=== PATIENT | female | born 1970 | race African-American/Black ===

== ENCOUNTER 2018-06-25 22:30 | Emergency (ER) | payer OTHER ==
[2018-06-25 22:51] VITALS: BP 154/95; PULSE 82; TEMP 98.3; BMI 32.9
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
[2018-06-25] MEDS ORDERED: IBUPROFEN 400 MG TABLET (FP) PO ONE ×2 (23:40→23:45)
[2018-06-26] MEDS ORDERED: CYCLOBENZAPRINE HCL 5 MG TABLET PO STA (02:10)
[2018-06-26] MEDS ORDERED: CYCLOBENZAPRINE HCL 10 MG TABLET (FP) ONE (02:34)
== END 2018-06-26 02:36 | disposition home or self-care (01) ==
LOC: JER 22:30
DX: S93.401A Sprain of unspecified ligament of right ankle, initial encounter (principal); V43.52XA Car driver injured in collision with other type car in traffic accident, initial encounter; Y93.89 Activity, other specified; Y92.410 Unspecified street and highway as the place of occurrence of the external cause; D64.9 Anemia, unspecified; E11.9 Type 2 diabetes mellitus without complications; I10 Essential (primary) hypertension; E78.00 Pure hypercholesterolemia, unspecified; Z91.013 Allergy to seafood; Z79.82 Long term (current) use of aspirin; Z79.84 Long term (current) use of oral hypoglycemic drugs
CPT/HCPCS: 72100-TC-FY; 73610-TC-RT-FY; 84703; 99283-25

== ENCOUNTER 2025-07-03 16:18 | Inpatient (IN) | payer OTHER ==
[2025-07-03] MEDS ORDERED: ACETAMINOPHEN INJECTION 100 ML ONE ×3 (16:41→23:54)
[2025-07-03] MEDS ORDERED: PIPERACILLIN/TAZOB 3.375 GM 3.375 GM/50 ML BAG IVPB ONE ×2 (16:47→23:50)
[2025-07-03] MEDS: ACETAMINOPHEN 1000 MG/100 ML BAG IVPB ONE (16:49)
[2025-07-03] MEDS: SODIUM CHLORIDE 0.9% 500 ML INFUS.BAG IV ONE (16:49)
[2025-07-03] MEDS: PIPERACILLIN/TAZOB 3.375 GM 3.375 GM in DEXTROSE 5%-WATER - 50 ML IVPB ONE (16:49)
[2025-07-03 16:58] LABS: RDW 13.2 % (12.3-16.6)
[2025-07-03 17:00] LABS: MCHC 31.8 g/dl (32.2-35.5); MEAN CELL VOLUME 86.2 fl (79.4-94.8); MEAN PLT VOLUME 11.3 fl (9.4-12.3)
[2025-07-03 17:04] LABS: BG HCT 43.0 % (32.4-45.2); VENOUS BASE EXCESS -1.9 mmol/L (-2-2); VENOUS O2 SATURATION 25.0 % (70-80); VENOUS PCO2 36.8 mmHg (38-52); VENOUS PH 7.402 (7.310-7.410)
[2025-07-03] MEDS ORDERED: VANCOMYCIN 1 GM PREMIX (F) 1 GM/200 ML BAG ONE (17:07)
[2025-07-03 17:17] LABS: GLUCOSE,RANDOM 388.0 mg/dL (74-106)
[2025-07-03 17:18] LABS: TOT PROT 6.6 g/dl (6.4-8.2)
[2025-07-03 17:19] LABS: CO2 21.0 mmol/L (21-32)
[2025-07-03 17:20] LABS: ALK PHOS 80.0 U/L (40-150)
[2025-07-03 17:23] LABS: CREATININE 1.19 mg/dL (0.55-1.3); SGOT/AST 28.0 U/L (5-34); SGPT/ALT 20.0 U/L (0-55)
[2025-07-03] MEDS: VANCOMYCIN 1,000 MG in DEXTROSE 5%-WATER - 250 ML IVPB ONE (17:31)
[2025-07-03 17:43] LABS: HCV DIAGNOSTIC IN-HOUSE W/RFLX NON-REACTIVE (NONREACTIVE)
[2025-07-03 17:44] LABS: HIV INTERPRETATION NEGATIVE (NEGATIVE)
[2025-07-03 18:20] LABS: ERYTHROCYTE SEDIMENTATION RATE 95 mm/hr (0-30)
[2025-07-03 18:26] LABS: EPI CELLS 25 /uL (0-25.1); HYALINE CASTS 1 /uL (0-3.1); URINE APPEARANCE CLEAR; URINE BACTERIA 270 /uL (0-1359); URINE BILIRUBIN NEGATIVE (NEGATIVE); URINE COLOR YELLOW; URINE GLUCOSE (UA) 1+ (NEGATIVE); URINE KETONE 3+ (NEGATIVE); URINE LEUK ESTERASE NEGATIVE (NEGATIVE); URINE NITRITE NEGATIVE (NEGATIVE); URINE PROTEIN 2+ (NEGATIVE); URINE RBC 3 /uL (0-23.9); URINE UROBILINOGEN 1.0 mg/dL (0.2-1.0); URINE WBC 12 /uL (0-25.8)
[2025-07-03 18:35] LABS: COCAINE, UR NEGATIVE (NEGATIVE); INR 1.25 (0.83-1.09); PHENCYCLIDINE,URINE NEGATIVE (NEGATIVE); PROTHROMBIN TIME (PATIENT) 13.6 SEC (9.7-13.0)
[2025-07-03 18:36] LABS: METHADONE, UR NEGATIVE (NEGATIVE); OPIATES, URI NEGATIVE (NEGATIVE); URINE AMPHETAMINES NEGATIVE (NEGATIVE); URINE BARBITURATES NEGATIVE (NEGATIVE); URINE BENZODIAZEPINES NEGATIVE (NEGATIVE)
[2025-07-03 18:43] LABS: ACTIVATED PTT 27.4 SECONDS (25.2-36.5)
[2025-07-03] MEDS ORDERED: KETOROLAC TROMETHAMINE 15 MG/ML VIAL ONE (20:49)
[2025-07-03] MEDS: KETOROLAC TROMETHAMINE 15 MG/ML VIAL IVPUSH ONE (21:01)
[2025-07-04] MEDS: PIPERACILLIN/TAZOB 3.375 GM 3.375 GM in DEXTROSE 5%-WATER - 50 ML IVPB SCH (00:04)
[2025-07-04] MEDS: ACETAMINOPHEN 1000 MG/100 ML BAG IVPB PRN (00:04)
[2025-07-04] MEDS ORDERED: ACETAMINOPHEN INJECTION 100 ML ONE ×2 (05:12→12:23)
[2025-07-04] MEDS ORDERED: ALBUTEROL SO4 2.5/IPRATROPIUM 0.5 INH SOL 3 ML VIAL.NEB. NEB ONE ×2 (05:12→11:54)
[2025-07-04] MEDS: ALBUTEROL SO4 2.5/IPRATROPIUM 0.5 INH SOL 3 ML VIAL.NEB. NEB ONE (05:23)
[2025-07-04] MEDS: VANCOMYCIN/WATER 1250 MG 1,250 MG/250 ML BAG IVPB SCH (05:24)
[2025-07-04] MEDS ORDERED: VANCOMYCIN/WATER 1250 MG 1,250 MG/250 ML BAG IVPB ONE (05:24)
[2025-07-04 07:08] LABS: MCHC 32.1 g/dl (32.2-35.5); MEAN CELL VOLUME 84.6 fl (79.4-94.8); MEAN PLT VOLUME 12.2 fl (9.4-12.3); RDW 13.2 % (12.3-16.6)
[2025-07-04 07:17] LABS: GLUCOSE,RANDOM 534 mg/dL (74-106)
[2025-07-04 07:18] LABS: TOT PROT 5.4 g/dl (6.4-8.2)
[2025-07-04 07:23] LABS: CREATININE 1.06 mg/dL (0.55-1.3); SGOT/AST 33 U/L (5-34); SGPT/ALT 20 U/L (0-55)
[2025-07-04 07:31] LABS: ALK PHOS 69 U/L (40-150); CO2 19 mmol/L (21-32)
[2025-07-04] MEDS ORDERED: KETOROLAC TROMETHAMINE 15 MG/ML VIAL ONE ×2 (07:35→13:42)
[2025-07-04] MEDS: KETOROLAC TROMETHAMINE 15 MG/ML VIAL IVPUSH PRN (07:39)
[2025-07-04 08:47] LABS: EPI CELLS 17 /uL (0-25.1); HYALINE CASTS 0 /uL (0-3.1); URINE APPEARANCE CLOUDY; URINE BACTERIA 301 /uL (0-1359); URINE BILIRUBIN NEGATIVE (NEGATIVE); URINE COLOR YELLOW; URINE GLUCOSE (UA) 3+ (NEGATIVE); URINE KETONE 2+ (NEGATIVE); URINE LEUK ESTERASE NEGATIVE (NEGATIVE); URINE NITRITE NEGATIVE (NEGATIVE); URINE PROTEIN 1+ (NEGATIVE); URINE RBC 4 /uL (0-23.9); URINE UROBILINOGEN 0.2 mg/dL (0.2-1.0); URINE WBC 20 /uL (0-25.8)
[2025-07-04] MEDS ORDERED: ENOXAPARIN NA (PORCINE) 40 MG/0.4 ML DISP.SYRIN SQ ONE (09:47)
[2025-07-04] MEDS ORDERED: PIPERACILLIN/TAZOB 3.375 GM 3.375 GM/50 ML BAG IVPB ONE ×2 (09:47→15:36)
[2025-07-04] MEDS: ENOXAPARIN NA (PORCINE) 40 MG/0.4 ML DISP.SYRIN SQ SCH (09:55)
[2025-07-04 12:03] LABS: YEAST NOT PRESENT (NEGATIVE)
[2025-07-04] MEDS ORDERED: INSULIN ASPART SLIDING SCALE (NOVOLOG) 1 VIAL SQ ONE (15:24)
[2025-07-04] MEDS: INSULIN (NOVOLOG) ASPART 100 UNITS/ML 10ML VIAL SQ ONE (15:32)
[2025-07-04] MEDS: INSULIN ASPART SLIDING SCALE (NOVOLOG) 1 VIAL SQ SCH ×2 (15:34→21:02)
[2025-07-04] MEDS ORDERED: ASPIRIN 81 MG CHEWABLE TABLETS ONE (15:36)
[2025-07-04] MEDS: ASPIRIN 81 MG CHEWABLE TABLETS PO SCH (15:43)
[2025-07-04] MEDS: INSULIN GLARGINE (LANTUS) 100 UNITS/ML UNITS SQ SCH (21:02)
[2025-07-04] MEDS: LIDOCAINE 5% TOPICAL PATCH TP SCH (21:04)
[2025-07-04] MEDS: guaiFENesin/D-METHORPHAN TAB.ER.12H PO SCH (21:44)
[2025-07-05 09:20] LABS: MCHC 32.5 g/dl (32.2-35.5); MEAN CELL VOLUME 84.4 fl (79.4-94.8); MEAN PLT VOLUME 13.2 fl (9.4-12.3); RDW 13.2 % (12.3-16.6)
[2025-07-05 09:55] LABS: GLUCOSE,RANDOM 153.0 mg/dL (74-106)
[2025-07-05 09:56] LABS: TOT PROT 6.3 g/dl (6.4-8.2)
[2025-07-05 09:57] LABS: CO2 19.0 mmol/L (21-32)
[2025-07-05 09:58] LABS: ALK PHOS 78.0 U/L (40-150)
[2025-07-05 10:01] LABS: CREATININE 1.11 mg/dL (0.55-1.3); SGOT/AST 72.0 U/L (5-34); SGPT/ALT 48.0 U/L (0-55)
[2025-07-05] MEDS: SODIUM CHLORIDE 1,000 ML IV SCH (10:39)
[2025-07-05 10:46] LABS: LDL CHOLESTEROL (ONLY SJRH) 70 mg/dL (5-100)
[2025-07-05] MEDS: LIDOCAINE PATCH REMOVAL MC SCH (11:56)
[2025-07-05] MEDS: ACETAMINOPHEN 325 MG TABLET (FP) PO PRN (13:31)
[2025-07-05] MEDS: PANTOPRAZOLE SODIUM 40 MG VIAL IVPUSH SCH (13:32)
[2025-07-05] MEDS: LACTATED RINGERS SOLUTION 1,000 ML/1,000 ML INFUS.BAG IV SCH (13:47)
[2025-07-05] MEDS ORDERED: ACETAMINOPHEN 325 MG TABLET (FP) PO PRN (16:31)
[2025-07-05 17:10] LABS: LDL CHOLESTEROL (ONLY SJRH) 75.0 mg/dL (5-100)
[2025-07-05 17:15] LABS: N-TERMINAL BNP 463.5 pg/mL (0-299.9)
[2025-07-05] MEDS ORDERED: PIPERACILLIN/TAZOB 4.5 GM 4.5 GM in DEXTROSE 5%-WATER 100 ML IVPB SCH (18:00)
[2025-07-05] MEDS: PIPERACILLIN/TAZOB 3.375 GM 3.375 GM in DEXTROSE 5%-WATER - 50 ML IVPB SCH (18:49)
[2025-07-05] MEDS: IBUPROFEN 800 MG/8 ML IJ IVPB ONE (21:59)
[2025-07-06] MEDS ORDERED: PIPERACILLIN/TAZOB 3.375 GM 3.375 GM in DEXTROSE 5%-WATER - 50 ML IVPB SCH (03:00)
[2025-07-06] MEDS ORDERED: VANCOMYCIN/WATER 1250 MG 1,250 MG/250 ML BAG IVPB SCH (06:00)
[2025-07-06] MEDS ORDERED: AZITHROMYCIN IVPB 500 MG/250 ML BAG IVPB SCH (11:00)
[2025-07-06 11:30] LABS: MCHC 32.5 g/dl (32.2-35.5); MEAN CELL VOLUME 82.9 fl (79.4-94.8); MEAN PLT VOLUME 13.0 fl (9.4-12.3); RDW 13.8 % (12.3-16.6)
[2025-07-06 12:09] LABS: GLUCOSE,RANDOM 200.0 mg/dL (74-106)
[2025-07-06 12:10] LABS: ALK PHOS 71.0 U/L (40-150); CO2 22.0 mmol/L (21-32); CREATININE 1.13 mg/dL (0.55-1.3); SGOT/AST 88.0 U/L (5-34); SGPT/ALT 53.0 U/L (0-55); TOT PROT 5.5 g/dl (6.4-8.2)
[2025-07-06] MEDS: SODIUM CHLORIDE 1,000 ML IV SCH (18:39)
[2025-07-07 07:13] LABS: GLUCOSE,RANDOM 113.0 mg/dL (74-106); TOT PROT 5.0 g/dl (6.4-8.2)
[2025-07-07 07:16] LABS: ALK PHOS 72.0 U/L (40-150)
[2025-07-07 07:18] LABS: SGOT/AST 119.0 U/L (5-34); SGPT/ALT 60.0 U/L (0-55)
[2025-07-07 07:19] LABS: CREATININE 1.08 mg/dL (0.55-1.3)
[2025-07-07 07:25] LABS: CO2 21.0 mmol/L (21-32)
[2025-07-07 07:37] LABS: IRON SERUM < 10 ug/dL (50-175)
[2025-07-07] MEDS: POTASSIUM CHLORIDE ORAL LIQUID 20 MEQ/15 ML PO ONE (09:14)
[2025-07-07] MEDS: KCL 10 MEQ IVPB 10 MEQ/100 ML INFUS.BAG IVPB SCH (10:27)
[2025-07-07] MEDS: ALBUTEROL SO4 2.5/IPRATROPIUM 0.5 INH SOL 3 ML VIAL.NEB. NEB SCH (11:54)
[2025-07-07] MEDS: MAGNESIUM 1GM/D5W 100ML - 100 ML IVPB IVPB ONE (13:53)
[2025-07-07] MEDS: METHOCARBAMOL 500 MG TABLET PO SCH (16:00)
[2025-07-07] MEDS: LIDOCAINE 4% PATCH TP SCH ×3 (16:25→21:28)
[2025-07-07] MEDS: ACETAMINOPHEN 1000 MG/100 ML BAG IVPB PRN (20:33)
[2025-07-07] MEDS: ATORVASTATIN CA 10 MG TABLET (FP) PO SCH (21:28)
[2025-07-07] MEDS ORDERED: LIDOCAINE PATCH REMOVAL MC SCH (22:00)
[2025-07-08] MEDS: ALBUTEROL SO4 2.5/IPRATROPIUM 0.5 INH SOL 3 ML VIAL.NEB. NEB ONE (03:58)
[2025-07-08] MEDS: ASPIRIN 81 MG CHEWABLE TABLETS PO SCH (09:21)
[2025-07-08] MEDS: LISINOPRIL 20 MG TABLET PO SCH (09:21)
[2025-07-08] MEDS: LIDOCAINE PATCH REMOVAL MC SCH ×2 (09:22)
[2025-07-08 09:52] LABS: MCHC 33.1 g/dl (32.2-35.5); MEAN CELL VOLUME 81.4 fl (79.4-94.8); MEAN PLT VOLUME 12.7 fl (9.4-12.3); RDW 13.7 % (12.3-16.6)
[2025-07-08 10:24] LABS: GLUCOSE,RANDOM 111.0 mg/dL (74-106); TOT PROT 5.0 g/dl (6.4-8.2)
[2025-07-08 10:25] LABS: CO2 23.0 mmol/L (21-32)
[2025-07-08 10:27] LABS: ALK PHOS 81.0 U/L (40-150)
[2025-07-08 10:30] LABS: CREATININE 0.99 mg/dL (0.55-1.3); SGOT/AST 117.0 U/L (5-34); SGPT/ALT 73.0 U/L (0-55)
[2025-07-08] MEDS: methylPREDNISolone NA SUCC 40 MG/1 ML VIAL IVPUSH SCH (13:11)
[2025-07-08] MEDS: SODIUM CHLORIDE 1,000 ML IV SCH (13:46)
[2025-07-08] MEDS: POTASSIUM CHLORIDE ORAL LIQUID 20 MEQ/15 ML PO ONE (13:46)
[2025-07-08] MEDS: CALQUENCE 100 MG PO SCH (21:22)
[2025-07-09] MEDS ORDERED: PIPERACILLIN/TAZOBACTAM 3.375 GM VIAL IVPB ONE (09:21)
[2025-07-09 14:01] VITALS: BMI 33.3
[2025-07-09] MEDS: CEFTRIAXONE 1 GM in DEXTROSE 5%-WATER - 50 ML IVPB SCH (18:27)
[2025-07-09] MEDS: AZITHROMYCIN IVPB 500 MG/250 ML BAG IVPB SCH (19:46)
[2025-07-09] MEDS: ACETAMINOPHEN 1000 MG/100 ML BAG IVPB ONE (21:26)
[2025-07-09] MEDS: BANATROL PLUS POWDER PACKET PO SCH (22:29)
[2025-07-10 07:11] LABS: MCHC 35.1 g/dl (32.2-35.5); MEAN CELL VOLUME 78.6 fl (79.4-94.8); MEAN PLT VOLUME 12.1 fl (9.4-12.3); RDW 13.2 % (12.3-16.6)
[2025-07-10 07:37] LABS: GLUCOSE,RANDOM 83 mg/dL (74-106); TOT PROT 5.4 g/dl (6.4-8.2)
[2025-07-10 07:38] LABS: CO2 21 mmol/L (21-32)
[2025-07-10 07:42] LABS: CREATININE 1.03 mg/dL (0.55-1.3); SGOT/AST 102 U/L (5-34); SGPT/ALT 89 U/L (0-55)
[2025-07-10 07:50] LABS: ALK PHOS 102 U/L (40-150)
[2025-07-10] MEDS: VANCOMYCIN/WATER FOR INJ (PEG) 1,000 MG/200 ML BAG IVPB ONE (13:51)
[2025-07-10] MEDS: POTASSIUM CHLORIDE ORAL LIQUID 20 MEQ/15 ML PO SCH (13:53)
[2025-07-10 14:21] LABS: LDH 504 U/L (84-246)
[2025-07-10] MEDS: LACTATED RINGERS SOLUTION 1,000 ML/1,000 ML INFUS.BAG IV SCH (14:36)
[2025-07-10] MEDS: ACETAMINOPHEN 1000 MG/100 ML BAG IVPB PRN (14:39)
[2025-07-10] MEDS: VANCOMYCIN HCL 125 MG CAPSULE (RESTRICTED TO ID ONLY) PO SCH (15:43)
[2025-07-10] MEDS: MEROPENEM 1 GM in DEXTROSE 5%-WATER 100 ML IVPB SCH (15:44)
[2025-07-10] MEDS: MUPIROCIN 2% TOPICAL OINTMENT FOR DECOLONIZATION NS SCH ×2 (17:58→21:30)
[2025-07-10] MEDS: CHLORHEXIDINE GLUCONATE 4% CLEANSER FOR DECOLONIZATION TP SCH (21:31)
[2025-07-10] MEDS: ATORVASTATIN CA 40 MG TABLET (FP) PO SCH (21:39)
[2025-07-10] MEDS ORDERED: ATORVASTATIN CA 80 MG TABLET (FP) PO SCH (22:00)
[2025-07-10] MEDS ORDERED: VANCOMYCIN HCL 125 MG CAPSULE (RESTRICTED TO ID ONLY) PO SCH (23:21)
[2025-07-10 23:22] LABS: EPI CELLS >36 /uL (0-25.1); HYALINE CASTS 1 /uL (0-3.1); URINE APPEARANCE CLEAR; URINE BACTERIA 4 /uL (0-1359); URINE BILIRUBIN NEGATIVE (NEGATIVE); URINE COLOR YELLOW; URINE GLUCOSE (UA) NEGATIVE (NEGATIVE); URINE KETONE NEGATIVE (NEGATIVE); URINE LEUK ESTERASE NEGATIVE (NEGATIVE); URINE NITRITE NEGATIVE (NEGATIVE); URINE PROTEIN 2+ (NEGATIVE); URINE RBC 5 /uL (0-23.9); URINE UROBILINOGEN 0.2 mg/dL (0.2-1.0)
[2025-07-10 23:49] LABS: YEAST PRESENT (NEGATIVE)
[2025-07-11] MEDS: AZITHROMYCIN IVPB 500 MG/250 ML BAG IVPB SCH ×2 (00:42→23:54)
[2025-07-11] MEDS: VANCOMYCIN HCL 125 MG CAPSULE (RESTRICTED TO ID ONLY) PO SCH ×2 (05:34→17:17)
[2025-07-11 06:56] LABS: MCHC 34.3 g/dl (32.2-35.5); MONOCYTE # 0.77 x10^3/uL (0.24-0.86)
[2025-07-11 07:05] LABS: ABSOLUTE IMMATURE GRANULOCYTES 0.34 x10^3/uL (0.0-0.031); BASOPHILS # 0.03 x10^3/uL (0.01-0.08); EOSINOPHIL % 0.2 % (0.7-5.8); EOSINOPHILS # 0.04 x10^3/uL (0.04-0.36); MEAN CELL VOLUME 80.1 fl (79.4-94.8); MEAN PLT VOLUME 12.4 fl (9.4-12.3); MONOCYTE % 3.9 % (4.7-12.5); RDW 13.8 % (12.3-16.6)
[2025-07-11 07:08] LABS: TOT PROT 4.7 g/dl (6.4-8.2)
[2025-07-11 07:09] LABS: CO2 22.0 mmol/L (21-32)
[2025-07-11 07:13] LABS: SGOT/AST 57.0 U/L (5-34); SGPT/ALT 72.0 U/L (0-55)
[2025-07-11 07:14] LABS: CREATININE 0.87 mg/dL (0.55-1.3)
[2025-07-11 07:27] LABS: ALK PHOS 94.0 U/L (40-150)
[2025-07-11 07:28] LABS: GLUCOSE,RANDOM 286.0 mg/dL (74-106)
[2025-07-11] MEDS ORDERED: POTASSIUM PHOSPHATE 30 MM in DEXTROSE 5%-WATER - 250 ML IVPB ONE (07:40)
[2025-07-11] MEDS ORDERED: ACETAMINOPHEN 325 MG TABLET (FP) PO PRN ×2 (08:04→15:56)
[2025-07-11] MEDS ORDERED: LIDOCAINE PATCH REMOVAL MC SCH (08:04)
[2025-07-11] MEDS: SODIUM PHOSPHATE - 15 MM in SODIUM CHLORIDE 250 ML IVPB ONE (08:52)
[2025-07-11] MEDS: PANTOPRAZOLE SODIUM 40 MG VIAL IVPUSH SCH (09:01)
[2025-07-11] MEDS: LISINOPRIL 20 MG TABLET PO SCH (09:02)
[2025-07-11] MEDS: ASPIRIN 81 MG CHEWABLE TABLETS PO SCH (09:02)
[2025-07-11] MEDS: LIDOCAINE PATCH REMOVAL MC SCH ×2 (09:04)
[2025-07-11] MEDS: methylPREDNISolone NA SUCC 40 MG/1 ML VIAL IVPUSH SCH (09:05)
[2025-07-11] MEDS: CALQUENCE 100 MG PO SCH (09:13)
[2025-07-11] MEDS: guaiFENesin/D-METHORPHAN TAB.ER.12H PO SCH ×2 (09:13→21:28)
[2025-07-11] MEDS: INSULIN ASPART SLIDING SCALE (NOVOLOG) 1 VIAL SQ SCH ×2 (12:21→17:31)
[2025-07-11] MEDS: ALBUTEROL SO4 2.5/IPRATROPIUM 0.5 INH SOL 3 ML VIAL.NEB. NEB SCH ×2 (12:32→18:34)
[2025-07-11] MEDS: BANATROL PLUS POWDER PACKET PO SCH ×2 (14:06→21:20)
[2025-07-11] MEDS: METHOCARBAMOL 500 MG TABLET PO SCH ×2 (15:05→21:20)
[2025-07-11] MEDS: MEROPENEM 1 GM in DEXTROSE 5%-WATER 100 ML IVPB SCH (17:18)
[2025-07-11] MEDS ORDERED: LIDOCAINE 4% PATCH TP SCH ×2 (21:00)
[2025-07-11] MEDS: ATORVASTATIN CA 40 MG TABLET (FP) PO SCH (21:20)
[2025-07-11] MEDS: LIDOCAINE 4% PATCH TP SCH ×2 (21:20)
[2025-07-11] MEDS: INSULIN GLARGINE (LANTUS) 100 UNITS/ML UNITS SQ SCH (21:25)
[2025-07-11] MEDS ORDERED: INSULIN GLARGINE (LANTUS) 100 UNITS/ML UNITS SQ SCH (22:00)
[2025-07-11] MEDS ORDERED: MUPIROCIN 2% TOPICAL OINTMENT FOR DECOLONIZATION NS SCH (22:00)
[2025-07-11] MEDS ORDERED: CHLORHEXIDINE GLUCONATE 4% CLEANSER FOR DECOLONIZATION TP SCH (22:00)
[2025-07-12 08:55] LABS: MCHC 33.2 g/dl (32.2-35.5); MEAN CELL VOLUME 81.5 fl (79.4-94.8); MEAN PLT VOLUME 12.0 fl (9.4-12.3); RDW 14.5 % (12.3-16.6)
[2025-07-12] MEDS: ASPIRIN 81 MG CHEWABLE TABLETS PO SCH (09:48)
[2025-07-12] MEDS: PANTOPRAZOLE SODIUM 40 MG VIAL IVPUSH SCH (09:50)
[2025-07-12 09:51] LABS: GLUCOSE,RANDOM 54.0 mg/dL (74-106); TOT PROT 5.7 g/dl (6.4-8.2)
[2025-07-12 09:52] LABS: CO2 26.0 mmol/L (21-32)
[2025-07-12] MEDS: LIDOCAINE PATCH REMOVAL MC SCH ×2 (09:52)
[2025-07-12] MEDS: methylPREDNISolone NA SUCC 40 MG/1 ML VIAL IVPUSH SCH (09:52)
[2025-07-12] MEDS: LISINOPRIL 20 MG TABLET PO SCH (09:52)
[2025-07-12 09:57] LABS: CREATININE 0.9 mg/dL (0.55-1.3); SGOT/AST 52.0 U/L (5-34); SGPT/ALT 85.0 U/L (0-55)
[2025-07-12 10:01] LABS: ALK PHOS 100.0 U/L (40-150)
[2025-07-13 09:29] LABS: MCHC 32.5 g/dl (32.2-35.5); MEAN CELL VOLUME 82.1 fl (79.4-94.8); MEAN PLT VOLUME 11.6 fl (9.4-12.3); RDW 14.4 % (12.3-16.6)
[2025-07-13 09:51] LABS: GLUCOSE,RANDOM 126.0 mg/dL (74-106); TOT PROT 5.0 g/dl (6.4-8.2)
[2025-07-13 09:52] LABS: CO2 25.0 mmol/L (21-32)
[2025-07-13 09:53] LABS: ALK PHOS 84.0 U/L (40-150)
[2025-07-13 09:56] LABS: SGOT/AST 36.0 U/L (5-34); SGPT/ALT 69.0 U/L (0-55)
[2025-07-13 09:57] LABS: CREATININE 0.72 mg/dL (0.55-1.3)
[2025-07-13] MEDS: NIFEdipine E.R 60 MG TABLET PO SCH (13:33)
[2025-07-14] MEDS: predniSONE 10 MG TABLET (UD) PO SCH (10:19)
[2025-07-15 08:04] LABS: ABSOLUTE IMMATURE GRANULOCYTES 0.38 x10^3/uL (0.0-0.031); BASOPHILS # 0.02 x10^3/uL (0.01-0.08); EOSINOPHIL % 0.9 % (0.7-5.8); EOSINOPHILS # 0.12 x10^3/uL (0.04-0.36); MCHC 31.3 g/dl (32.2-35.5); MEAN CELL VOLUME 86.3 fl (79.4-94.8); MEAN PLT VOLUME 11.4 fl (9.4-12.3); MONOCYTE # 0.63 x10^3/uL (0.24-0.86); MONOCYTE % 4.6 % (4.7-12.5); RDW 16.4 % (12.3-16.6)
[2025-07-15 09:03] LABS: GLUCOSE,RANDOM 65.0 mg/dL (74-106)
[2025-07-15 09:05] LABS: CO2 30.0 mmol/L (21-32)
[2025-07-15 09:09] LABS: CREATININE 0.72 mg/dL (0.55-1.3)
[2025-07-15] MEDS: NIFEdipine E.R. 30 MG TABLET PO SCH (09:29)
[2025-07-15] MEDS: MAGNESIUM OXIDE 400 MG TABLET (FP) PO ONE (15:14)
[2025-07-15 15:35] VITALS: BP 140/77; PULSE 79; RESP 17; TEMP 97.9
== END 2025-07-15 18:46 | disposition home or self-care (01) | DRG 720 ==
LOC: JER 16:18 → JERBED 22:01 → J4W 07-04 16:18 → JICU 07-10 10:44 → J4W 07-10 10:44 → JICU 07-10 11:54 → J5S 07-11 15:52
PROVIDERS: ADMIT Internal Medicine; ATTEND Internal Medicine
DX: A41.9 Sepsis, unspecified organism (principal); C95.90 Leukemia, unspecified not having achieved remission; G93.41 Metabolic encephalopathy; J18.9 Pneumonia, unspecified organism; E11.65 Type 2 diabetes mellitus with hyperglycemia; E87.1 Hypo-osmolality and hyponatremia; D64.9 Anemia, unspecified; E78.5 Hyperlipidemia, unspecified; I10 Essential (primary) hypertension; I25.10 Atherosclerotic heart disease of native coronary artery without angina pectoris; K52.9 Noninfective gastroenteritis and colitis, unspecified; R09.02 Hypoxemia; R65.10 Systemic inflammatory response syndrome (SIRS) of non-infectious origin without acute organ dysfunction
CPT/HCPCS: 36415; 70450-TC; 70551-TC; 71045-TC-FY; 71250-TC; 72131-TC; 73562-TC-RT-FY; 74177-TC; 80048; 80053; 80061; 80307; 81003; 82272; 82378; 82436; 82533; 82728; 82803; 82962; 83036; 83540; 83550; 83605; 83615; 83735; 83880; 83930; 83935; 84100; 84133; 84300; 84443; 84484; 84550; 85025; 85027; 85384; 85610; 85651; 85730; 86140; 86803; 86850; 86900; 86901; 87040; 87045; 87046; 87070; 87077; 87086; 87205; 87209; 87324; 87389; 87449; 87637-QW; 87899; 88300-TC; 93005; 93010; 93306-TC; 94640; 94761; 99285-25; Q9967